=== PATIENT | female | born 1945 | race Asian ===

== ENCOUNTER 2017-07-22 01:42 | Emergency (ER) | payer MEDICARE, OTHER ==
[~2017-07-22] VITALS: Ht 157.5 cm; Wt 55.3 kg
[2017-07-22 02:03] VITALS: Ht 157.5 cm; Wt 55.3 kg
[2017-07-22 05:45] VITALS: BP 141/84
== END 2017-07-22 06:20 | disposition home or self-care (01) ==
LOC: ED 01:42
DX: J11.1 Influenza due to unidentified influenza virus with other respiratory manifestations (principal); Z88.0 Allergy status to penicillin
CPT/HCPCS: 87804